=== PATIENT | female | born 1930 | race Caucasian/White ===

== ENCOUNTER 2016-10-21 14:00 | Emergency (ER) | payer MEDICARE ==
[2016-10-21] MEDS ORDERED: PREDNISONE 20 MG TABLET ONE (15:06)
[2016-10-21] MEDS ORDERED: ALBUTEROL/IPRATROPIUM 2.5/0.5 MG 3 ML/EACH DOSE ONE ×2 (15:10→15:59)
[2016-10-21 15:37] LABS: ABSOLUTE NEUTROPHIL COUNT 2.6 K/mm3 (1.8-7.7); BASO % 0.4 % (0.2-1.0); EOS # 0.3 (0.0-0.5); EOS % 5.9 % (0.9-2.9); HEMATOCRIT 36.1 % (37.0-47.0); IMM NEUT% 0.4 % (0-1); LYMPH % 21.8 % (15-45); MEAN CELL VOLUME 101.4 fl (81.0-99.0); MEAN CORPUSCULAR HEMOGLOBIN 30.9 pg (27.0-31.0); MEAN CORPUSCULAR HGB CONC 30.5 g/dl (33.0-37.0); MEAN PLATELET VOLUME 9.8 fl (7.4-10.4); MONO # 0.8 (0.0-0.8); MONO % 16.3 % (4-12); NEUT % 55.2 % (43-75); PLATELET COUNT 235 K/mm3 (130-400); RED CELL DISTRIBUTION WIDTH 12.1 % (11.5-14.5)
[2016-10-21 15:45] LABS: CALCIUM 9.2 mg/dL (8.6-10.3)
--- NOTE | 2016-10-21 15:47 | RAD ---
CHEST - 2 VIEWS COMPARISON: Portable chest x-ray, 04/30/2016 HISTORY: Cough and fever FINDINGS: Views: Frontal and lateral chest Lungs: Hyperinflated. No infiltrate. Heart and vessels: Normal Trachea and bronchi: Normal Mediastinum and blossom: Normal Costophrenic sulci: Normal Chest wall and bones: Normal. Upper abdomen: Normal. IMPRESSION: Chronic obstructive pulmonary disease/emphysema, without infiltrate.
== END 2016-10-21 18:08 | disposition home or self-care (01) ==
LOC: ED 14:00
DX: J44.1 Chronic obstructive pulmonary disease with (acute) exacerbation (principal); I10 Essential (primary) hypertension; F03.90 Unspecified dementia, unspecified severity, without behavioral disturbance, psychotic disturbance, mood disturbance, and anxiety; Z87.891 Personal history of nicotine dependence
CPT/HCPCS: 85025; 80048; 71020; 99284; 93005; 99283; J7512

== ENCOUNTER 2016-10-30 18:05 | Inpatient (IN) | payer MEDICARE ==
[2016-10-30] MEDS ORDERED: ALBUTEROL/IPRATROPIUM 2.5/0.5 MG 3 ML/EACH DOSE ONE (18:45)
--- NOTE | 2016-10-30 18:51 | RAD ---
Exam: Portable chest COMPARISON: 10/21/2016, 04/30/2016 INDICATION: Shortness of breath, worse than usual. Findings: A semierect AP portable view of chest again demonstrates findings of underlying obstructive airways disease. Cardiomediastinal silhouette is within normal limits and stable. There is no focal airspace disease or pleural effusion. Bones of the chest wall appear osteopenic but intact. IMPRESSION: Obstructive airways disease, however no acute pulmonary process is identified.
[2016-10-30 19:05] LABS: ALBUMIN 3.6 gm/dL (3.5-5.7); CALCIUM 9.4 mg/dL (8.6-10.3)
[2016-10-30 19:16] LABS: ABSOLUTE NEUTROPHIL COUNT 4.6 K/mm3 (1.8-7.7); BASO % 0.4 % (0.2-1.0); EOS # 0.5 (0.0-0.5); HEMOGLOBIN 12.3 gm/l (12.0-16.0); IMM NEUT% 0.3 % (0-1); LYMPH # 1.2 (1.0-4.8); LYMPH % 17.4 % (15-45); MEAN CELL VOLUME 103.7 fl (81.0-99.0); MEAN CORPUSCULAR HEMOGLOBIN 30.4 pg (27.0-31.0); MEAN CORPUSCULAR HGB CONC 29.3 g/dl (33.0-37.0); MEAN PLATELET VOLUME 9.4 fl (7.4-10.4); MONO # 0.7 (0.0-0.8); MONO % 9.8 % (4-12); NEUT % 65.1 % (43-75); PLATELET COUNT 312 K/mm3 (130-400); RED CELL DISTRIBUTION WIDTH 11.9 % (11.5-14.5)
[2016-10-30 20:00] LABS: URINE BILIRUBIN NEGATIVE (NEGATIVE); URINE BLOOD 1+ (NEGATIVE); URINE GLUCOSE (UA) NEGATIVE (NEGATIVE); URINE LEUKOCYTE ESTERASE 2+ (NEGATIVE); URINE NITRITE NEGATIVE (NEGATIVE); URINE PROTEIN 1+ (NEGATIVE); URINE UROBILINOGEN NORMAL (0-1 mg/dl)
[2016-10-30 20:11] LABS: URINE APPEARANCE SL CLOUDY; URINE COLOR DARK YELLOW
[2016-10-30 20:18] LABS: URINE AMORPHOUS SEDIMENT FEW; URINE BACTERIA 2+; URINE MUCUS 1+
[2016-10-30] MEDS ORDERED: CEFTRIAXONE 1 GRAM DUPLEX 50 ML IV ONE (20:29)
[2016-10-30] MEDS ORDERED: DIAZEPAM 5 MG TABLET ONE (20:45)
[2016-10-30] MEDS ORDERED: PREDNISONE 20 MG TABLET ONE (20:46)
[2016-10-30 21:09] LABS: VENOUS BLOOD GAS BASE EXCESS 13.7 mmol/L (-2.0-2.0); VENOUS BLOOD GAS HCO3 41.4 mmol/L (22.0-27.0)
[2016-10-30] MEDS ORDERED: MAGNESIUM HYDROXIDE 30 ML UDCUP PO PRN (21:54)
[2016-10-30] MEDS ORDERED: BISACODYL 5 MG TABLET.EC PO PRN (21:54)
[2016-10-30] MEDS ORDERED: SODIUM CHLORIDE 0.9% 100 ML IV PRN (21:54)
[2016-10-30] MEDS ORDERED: MENTHOL/CETYLPYRD 1 EACH LOZENGE PO PRN (21:54)
[2016-10-30] MEDS ORDERED: BLISTEX LIPSTICK 1 EACH TP PRN (21:54)
[2016-10-30] MEDS ORDERED: ACETAMINOPHEN 325 MG TABLET PO PRN (21:54)
[2016-10-30] MEDS ORDERED: BISACODYL 10 MG SUP PR PRN (21:54)
[2016-10-30] MEDS ORDERED: IV START KIT ONE (22:03)
[2016-10-30 22:06] VITALS: BMI 22.5
[2016-10-30] MEDS: ALBUTEROL/IPRATROPIUM 2.5/0.5 MG 3 ML/EACH DOSE NEB SCH (23:26)
[2016-10-30] MEDS: DOCUSATE SODIUM 100 MG CAPSULE PO SCH (23:33)
[2016-10-31] MEDS: FLUTICASONE/SALMETEROL 100/50 14 PUFF/EACH DISK IH SCH ×3 (00:21→20:52)
[2016-10-31] MEDS: ALPRAZOLAM 0.25 MG TABLET PO PRN ×3 (00:21→20:56)
[2016-10-31] MEDS: ALBUTEROL NEB 2.5 MG/3 ML VIAL.NEB NEB PRN ×3 (01:01→18:40)
[2016-10-31 06:31] LABS: CALCIUM 8.9 mg/dL (8.6-10.3)
--- NOTE | 2016-10-31 07:10 | HP ---
Amita Cortes [id number] CHIEF COMPLAINT: Dyspnea. HISTORY OF PRESENT ILLNESS: The patient is an 86-year-old female with advanced chronic obstructive pulmonary disease and chronic hypoxic respiratory failure who presents to the [facility] Emergency Department with complaints of worsening dyspnea. She vague about when her symptoms got worse. She has had an increased cough. She is significantly hypoxic in the emergency department despite her supplemental oxygen therapy, but after several nebulizer treatments her symptoms have improved. Based on the severity of her initial presentation and her increased work of breathing she was referred to the hospitalist service for admission. REVIEW OF SYSTEMS: Negative for any fevers or chills. She has had no recent upper respiratory symptoms. She denies complaints of chest pain. She has chronic dyspnea worse over the last week. She has a cough which is chronically productive, but seems a bit worse. Her sputum has not been visibly discolored. She has had no orthopnea or lower extremity edema. No nausea or vomiting. No diarrhea or constipation. No abdominal pain. No headaches, fainting, blackouts, or seizures. She denies any urinary complaints. PAST MEDICAL HISTORY: Significant for advanced chronic obstructive pulmonary disease with chronic hypoxic respiratory failure. She has been on home oxygen therapy for the past 14 years, she is at a flow rate of 3 liters by nasal cannula. She is followed by Dr. Rojas with [facility]. She has a nebulizer at home. She has a history of generalized anxiety disorder and is on chronic alprazolam treatment. She has had a history of coronary artery disease, but is not currently on any medical treatment for this due to refusal to take beta blockers. She has a no angina. She has had a history of peripheral vascular disease. She has had a history of pulmonary nodules. She has a history of osteoporosis and hyperlipidemia. She has had a history of hypertension in the past, but is no longer on any antihypertensive therapy. Her medical record indicates a history of dementia without behavioral disturbance, but she is a good historian and is oriented to person, place, time, year, and month. PAST SURGICAL HISTORY: Significant for a prior appendectomy. She has had a previous and a cholecystectomy. She also reports she has had a prior coronary angiogram, results are not available. ALLERGIES: SHE REPORTS ALLERGIES TO SULFA MEDICATIONS, PENICILLIN, ALSO COUMADIN, HEPARIN, AND CODEINE CURRENT MEDICATIONS: Consist of: 1. Calcium with vitamin D 250/200 units one pill twice daily. 2. Alprazolam 0.25 mg tablets one half to one tablet every 4 hours as needed for anxiety. 3. DuoNebs 3 mL nebulized up to four times daily. 4. Advair Diskus inhaler 100/50 mcg one inhalation twice daily. FAMILY HISTORY: Significant for a father, brother, and sister with coronary artery disease. SOCIAL HISTORY: She denies alcohol use or drug use. She has a 40 pack year history of smoking, but quit smoking 20 years ago. She [facility]. Her primary care provider is Dr. Naida Carroll. The patient has three living children. She has a POLST form indicating limited additional interventions, do not resuscitate. PHYSICAL EXAMINATION: VITALS: Temperature is 97.7, pulse 108, blood pressure 104/47, respirations 15, oxygen saturations are 93% on 3 liters by nasal cannula. Body mass index is 22.5, weight is 55.9 kg. GENERAL: This is a thin elderly female in mild respiratory distress. HEENT: Shows moist pink oral mucosa. NECK: Supple without lymphadenopathy or thyromegaly. LUNGS: Lung sounds are diminished throughout with occasional expiratory wheezes. CARDIOVASCULAR: Reveals a regular tachycardia without a murmur. ABDOMEN: Soft, nontender, nondistended with positive bowel sounds. GENITOURINARY: Deferred. RECTAL: Deferred. EXTREMITIES: Show no peripheral edema. DIAGNOSTICS: Chest x-ray shows findings of chronic obstructive pulmonary disease, no acute process is identified. LABORATORY STUDIES: Included a CBC with a white count of 7, hemoglobin of 12.3, platelet count of 312,000. Lactate is 0.8. Venous pH of 7.4. Chemistry profile shows a sodium of 140, potassium 4.5, chloride 90, carbon dioxide 46, BUN 14, creatinine 0.6, glucose 118. Liver function tests and cardiac enzymes are negative. B-type natiuretic peptide is 81. Urinalysis shows 2+ bacteria, 2-5 white cells, 2-5 red cells, 2+ leukocyte esterase, nitrite negative. ASSESSMENT AND PLAN: The patient has chronic obstructive pulmonary disease exacerbation with acute bronchitis, possibly bacterial. She is treated with Rocephin, prednisone, DuoNebs, and albuterol. She has generalized anxiety disorder and we will continue the Xanax as needed for her anxiety. She has chronic hypoxic respiratory failure. We will titrate her oxygen to keep her saturations between 88% and 95%. She has a history of coronary artery disease not on medication without evidence of angina. We will put her on low dose aspirin. She has evidence of asymptomatic bacteriuria, this will likely be treated with the treatment for her bronchitis. She reports she is up to date on pneumonia vaccinations and has a yearly flu vaccine. Per POLST form her code status is do not intubate, do not resuscitate. JOB: [id number] CC: Dr. Naida Carroll
[2016-10-31] MEDS: ALBUTEROL/IPRATROPIUM 2.5/0.5 MG 3 ML/EACH DOSE NEB SCH ×6 (07:55→20:35)
[2016-10-31] MEDS: ASPIRIN (ENTERIC COATED) 81 MG TABLET.EC PO SCH (09:01)
[2016-10-31] MEDS: PREDNISONE 20 MG TABLET PO SCH (09:01)
[2016-10-31] MEDS: DOCUSATE SODIUM 100 MG CAPSULE PO SCH ×2 (09:01→20:53)
[2016-10-31] MEDS: PANTOPRAZOLE 40 MG TABLET DR PO SCH (09:01)
[2016-10-31] MEDS ORDERED: FLUTICASONE/SALMETEROL 100/50 14 PUFF/EACH DISK IH SCH (11:30)
--- NOTE | 2016-10-31 17:05 | PDOC43 ---
- Subjective Chief Complaint: SOB feels better today but still a bit more SOB than nl. Subjective: Reports Tolerating Diet Well, Denies Chest Pain, Denies Abdominal Pain, Denies Nausea, Denies Vomiting, Denies Fever, Denies Chills - Objective Vital Signs Temperature 98.5 F 10/31/16 15:10 Pulse Rate 101 10/31/16 16:44 Respiratory Rate 22 10/31/16 16:37 Blood Pressure 110/47 10/31/16 16:44 O2 Saturation by Pulse Oximetry 90 10/31/16 16:37 Oxygen Delivery Method Nasal Cannula Oxygen Flow Rate 2.5 Intake and Output 10/30/16 10/31/16 11/01/16 06:59 06:59 06:59 Intake Total 400 490 Output Total 150 850 Balance 250 -360 General: Alert, Oriented x3, Cooperative, No Acute Distress HEENT: Atraumatic Lungs: Other (Poor air movement all regan B.) Cardiovascular: Regular Rate and Rhythm Abdomen: Soft, Normal Bowel Sounds, Non-Distended, No Tenderness Extremities: Normal Pulses, No Edema Laboratory 10/31/16 05:30 Current Medications: Current meds reviewed in EMR. - Problems: Assessment/Plan (1) COPD (chronic obstructive pulmonary disease) Qualifiers: COPD type: unspecified COPD Qualifier Code: (J44.9) Chronic obstructive pulmonary disease, unspecified Status: AcuteAssessment/Plan: COPD exacerbation in context of chronic COPD with chronic resp failure on home O2. Improved. [facility]pears near [facility]. Con't prednisone, rocephin, nebs, supportive care. (2) Anxiety Status: ChronicAssessment/Plan: Chronic at baseline. Con't usual xanax. VTE Prophylaxis: Ambulation. Disposition: Anticipate d/c home in AM.
[2016-10-31] MEDS ORDERED: PUMP TUBING ONE (20:47)
[2016-10-31] MEDS: CEFTRIAXONE 1 GRAM DUPLEX 1 G in Premix (D5W) 50 ml 1 EACH IV SCH (20:52)
[2016-11-01] MEDS: ALBUTEROL NEB 2.5 MG/3 ML VIAL.NEB NEB PRN ×2 (01:53→05:40)
[2016-11-01] MEDS: ALPRAZOLAM 0.25 MG TABLET PO PRN ×3 (05:39→22:22)
[2016-11-01] MEDS: ALBUTEROL/IPRATROPIUM 2.5/0.5 MG 3 ML/EACH DOSE NEB SCH ×5 (09:53→20:02)
[2016-11-01] MEDS: FLUTICASONE/SALMETEROL 100/50 14 PUFF/EACH DISK IH SCH ×2 (10:17→20:01)
[2016-11-01] MEDS: DOCUSATE SODIUM 100 MG CAPSULE PO SCH ×2 (10:17→20:01)
[2016-11-01] MEDS: ASPIRIN (ENTERIC COATED) 81 MG TABLET.EC PO SCH (10:17)
[2016-11-01] MEDS: PREDNISONE 20 MG TABLET PO SCH (10:18)
[2016-11-01] MEDS: PANTOPRAZOLE 40 MG TABLET DR PO SCH (10:18)
--- NOTE | 2016-11-01 13:36 | PDOC43 ---
- Subjective Chief Complaint: SOB Subjective: Reports Shortness of Breath (persists but approaching baseline), Denies Chest Pain, Denies Fever - Objective Vital Signs Temperature 98.5 F 11/01/16 11:41 Pulse Rate 84 11/01/16 11:46 Respiratory Rate 18 11/01/16 11:46 Blood Pressure 98/49 11/01/16 11:41 O2 Saturation by Pulse Oximetry 92 11/01/16 11:46 Oxygen Delivery Method Nasal Cannula Oxygen Flow Rate 1.5 Intake and Output 10/31/16 11/01/16 11/02/16 06:59 06:59 06:59 Intake Total 400 1180 Output Total 150 1150 Balance 250 30 General: Alert, Oriented x3, Cooperative, Mild Distress HEENT: Mucous membr. moist/pink Lungs: Diminished at Bases Cardiovascular: Regular Rate and Rhythm Abdomen: Soft, Normal Bowel Sounds, Non-Distended, No Tenderness Extremities: No Edema Laboratory 11/01/16 05:30 11/01/16 05:30 Anion Gap 5 L Estimated GFR 95 H Current Medications: Current meds reviewed in EMR. - Problems: Assessment/Plan (1) COPD (chronic obstructive pulmonary disease) Qualifiers: COPD type: unspecified COPD Qualifier Code: (J44.9) Chronic obstructive pulmonary disease, unspecified Status: AcuteAssessment/Plan: COPD exacerbation in context of chronic COPD with chronic resp failure on home O2. Marked chronic resp acidosis. Improving. Appears near baseline. Cont. prednisone, rocephin, nebs, supportive care. - patient does not feel safe at home and is interested in applying for assisted living, will get social work case manager consult. (2) Anxiety Status: ChronicAssessment/Plan: Chronic at baseline. Cont. usual xanax. VTE Prophylaxis: Ambulation. Disposition: Anticipate d/c home in AM. Need to look into assisted living options.
[2016-11-01] MEDS: CEFTRIAXONE 1 GRAM DUPLEX 1 G in Premix (D5W) 50 ml 1 EACH IV SCH (20:01)
[2016-11-02] MEDS: ALBUTEROL NEB 2.5 MG/3 ML VIAL.NEB NEB PRN ×3 (00:42→11:24)
[2016-11-02] MEDS: ALPRAZOLAM 0.25 MG TABLET PO PRN ×3 (05:15→20:33)
[2016-11-02] MEDS: ALBUTEROL/IPRATROPIUM 2.5/0.5 MG 3 ML/EACH DOSE NEB SCH ×4 (08:20→20:05)
[2016-11-02] MEDS: PANTOPRAZOLE 40 MG TABLET DR PO SCH (09:21)
[2016-11-02] MEDS: ASPIRIN (ENTERIC COATED) 81 MG TABLET.EC PO SCH (09:21)
[2016-11-02] MEDS: PREDNISONE 20 MG TABLET PO SCH (09:21)
[2016-11-02] MEDS: DOCUSATE SODIUM 100 MG CAPSULE PO SCH ×2 (09:21→20:32)
[2016-11-02] MEDS: FLUTICASONE/SALMETEROL 100/50 14 PUFF/EACH DISK IH SCH ×2 (09:22→20:31)
[2016-11-02] MEDS ORDERED: HYDROCORTISONE 2.5% CREAM 20 APPLIC/30 G TUBE PR PRN (12:18)
[2016-11-02] MEDS ORDERED: [UNRECOGNIZED DRUG - OTHER] PR PRN (12:45)
--- NOTE | 2016-11-02 16:28 | PDOC43 ---
- Subjective Chief Complaint: SOB Subjective: Reports Tolerating Diet Well, Reports Shortness of Breath (chronic and severe), Denies Chest Pain, Denies Fever - Objective Vital Signs Temperature 98.8 F 11/02/16 12:00 Pulse Rate 70 11/02/16 12:00 Respiratory Rate 19 11/02/16 15:00 Blood Pressure 117/52 11/02/16 12:00 O2 Saturation by Pulse Oximetry 85 11/02/16 12:40 Oxygen Delivery Method Nasal Cannula Oxygen Flow Rate 2.5 Intake and Output 11/01/16 11/02/16 11/03/16 06:59 06:59 06:59 Intake Total 1180 1670 Output Total 1150 1750 101 Balance 30 -80 -101 General: Alert, Oriented x3, Cooperative, Mild Distress HEENT: Mucous membr. moist/pink Lungs: Other (diminished throughout with some wheezes) Cardiovascular: Regular Rate and Rhythm Abdomen: Soft, Normal Bowel Sounds, Non-Distended, No Tenderness Extremities: No Edema Skin: Warm, Dry, Intact Neurological: Normal Speech, Cranial Nerves 3-12 Intact Laboratory 11/01/16 05:30 Current Medications: Current meds reviewed in EMR. - Problems: Assessment/Plan (1) COPD (chronic obstructive pulmonary disease) Qualifiers: COPD type: unspecified COPD Qualifier Code: (J44.9) Chronic obstructive pulmonary disease, unspecified Status: AcuteAssessment/Plan: COPD exacerbation in context of chronic COPD with chronic resp failure on home O2. Marked chronic resp acidosis. Improving. Appears near baseline which is end stage COPD. Cont. prednisone, rocephin, nebs, supportive care. - patient does not feel safe at home and is interested in applying for assisted living, will get social media community manager consult. Patient is medically stable and at baseline but refusing to be discharged due to poor social and physical support at home. Have contacted Medicaid field representative and patient is currently in limbo pending approval of increased services. Would benefit from assisted living. (2) Anxiety Status: ChronicAssessment/Plan: Chronic at baseline. Cont. usual xanax. VTE Prophylaxis: Ambulation and mechanical measures but refused [facility]. measures due to concerns about PVD. Disposition: Discharged patient this am, but patient is appealing discharge through Medicare.
[2016-11-02] MEDS ORDERED: MORPHINE SULF Oral Liquid 20 MG/1 ML DOSE PO PRN (16:41)
[2016-11-02] MEDS ORDERED: PUMP TUBING ONE (20:23)
[2016-11-02] MEDS: CEFTRIAXONE 1 GRAM DUPLEX 1 G in Premix (D5W) 50 ml 1 EACH IV SCH (20:30)
[2016-11-03] MEDS: ALBUTEROL NEB 2.5 MG/3 ML VIAL.NEB NEB PRN ×2 (03:19→13:01)
[2016-11-03] MEDS: ALBUTEROL/IPRATROPIUM 2.5/0.5 MG 3 ML/EACH DOSE NEB SCH ×3 (07:08→11:25)
[2016-11-03] MEDS: FLUTICASONE/SALMETEROL 100/50 14 PUFF/EACH DISK IH SCH (08:32)
[2016-11-03] MEDS: DOCUSATE SODIUM 100 MG CAPSULE PO SCH (08:33)
[2016-11-03] MEDS: ALPRAZOLAM 0.25 MG TABLET PO PRN (08:33)
[2016-11-03] MEDS: PREDNISONE 20 MG TABLET PO SCH (08:33)
[2016-11-03] MEDS: PANTOPRAZOLE 40 MG TABLET DR PO SCH (08:33)
[2016-11-03] MEDS: ASPIRIN (ENTERIC COATED) 81 MG TABLET.EC PO SCH (08:38)
--- NOTE | 2016-11-03 09:55 | PDOC43 ---
- Subjective Chief Complaint: SOB pt states she is feeling better. she is ready to go home today. had appealed discharge yesterday, but now willing to go home as she feels better. She ntoes SOB is improved. on home O2 level, tyically at home runs 2-3L O2 pending activity level. She does not recall morphine helping her with air hunger yesterday. Subjective: Reports Pain Tolerable, Reports Tolerating Diet Well, Reports Adequate Oral Intake, Reports Urinating Without Difficulty, Reports Shortness of Breath, Reports Cough, Denies Chest Pain, Denies Abdominal Pain, Denies Nausea, Denies Vomiting, Denies Fever, Denies Chills - Objective Vital Signs Temperature 97.6 F 11/03/16 07:00 Pulse Rate 94 11/03/16 07:09 Respiratory Rate 22 11/03/16 07:09 Blood Pressure 120/57 11/03/16 07:00 O2 Saturation by Pulse Oximetry 98 11/03/16 07:09 Oxygen Delivery Method Nasal Cannula Oxygen Flow Rate 3 Intake and Output 11/01/16 11/02/16 11/03/16 23:59 23:59 23:59 Intake Total 1540 1170 400 Output Total 1600 851 925 Balance -60 319 -525 General: Alert, Oriented x3, Cooperative HEENT: Atraumatic, Mucous membr. moist/pink Lungs: Diminished at Bases, No Clear to Auscultation Bilaterally (decreased significantly Bl throughout), No Normal Air Movement (wheezes trace in BL bases) Cardiovascular: Regular Rate and Rhythm, Normal S1, Normal S2, No Murmur, No Gallops Extremities: No Cyanosis Skin: Warm, Dry, Intact Neurological: Normal Speech Psych/Mental Status: Normal Affect, Normal Mood Laboratory 11/01/16 05:30 Current Medications: Current meds reviewed in EMR. - Problems: Assessment/Plan (1) COPD (chronic obstructive pulmonary disease) Qualifiers: COPD type: unspecified COPD Qualifier Code: (J44.9) Chronic obstructive pulmonary disease, unspecified Status: AcuteAssessment/Plan: COPD exacerbation in context of chronic COPD with chronic resp failure on home O2. Marked chronic resp acidosis. Still improving. Appears near baseline which is end stage COPD. Cont. prednisone, rocephin, nebs, supportive care. - patient does not feel safe at home and is interested in applying for assisted living, this is in process. Patient is medically stable and at baseline and is accepting of Discharge home today. she did get one dose of morphine 5mg for air hunger yesterday, pt is unsure if this was helpful. She is asking to go on prednisone 10mg only, as more makes her ill. (2) Anxiety Status: ChronicAssessment/Plan: Chronic at baseline. Cont. usual xanax. VTE Prophylaxis: Ambulation and mechanical measures but refused mech. measures due to concerns about PVD. Disposition: Discharged patient this am. pt withdraws appeal of DC this AM
[2016-11-03 11:25] VITALS: BP 120/55
--- NOTE | 2016-11-03 16:06 | DS ---
SATISH TAYLOR [id number] : 1930 DATE OF ADMISSION: October 31, 2016 DATE OF DISCHARGE: November 03, 2016 ADMIT DIAGNOSES: 1. End-stage chronic obstructive pulmonary disease with exacerbation. 2. Bacterial bronchitis. 3. Anxiety. DISCHARGE DIAGNOSES: 1. End-stage chronic obstructive pulmonary disease with exacerbation. 2. Bacterial bronchitis. 3. Anxiety. PROCEDURES/IMAGING: Chest x-ray shows findings of chronic obstructive pulmonary disease without any acute process performed at time of admission on October 31, 2016 HISTORY AND PHYSICAL: Please see History and Physical dictated, job number [id number]. In short, this is an 86-year-old female with end-stage chronic obstructive pulmonary disease on home oxygen already who presented with worsening shortness of breath and cough as well as hypoxia. She had a chronic obstructive pulmonary disease exacerbation and acute bronchitis and was admitted for treatment of the same. HOSPITAL COURSE: Hospital course by problems as follows: 1. Chronic obstructive pulmonary disease exacerbation. Patient was initially treated with Rocephin, prednisone, DuoNebs and albuterol. She did continue to improve throughout her hospital stay. She is on oxygen at home with a baseline of 2 to 3 liters per minute and was able to return to this baseline shortly after her admission and initiation of treatment. On November 02, 2016, patient was essentially at her baseline and was ready for discharge home. However, she complained of some vision changes secondary to her prednisone and appealed her discharge. By November 03, 2016, her vision had cleared up and she was feeling better and requested discharged home. She did make a special request that she wanted to be given 10 mg of prednisone for discharge as anything more makes her feel ill and unable to care for herself. She is at the end stages of her chronic obstructive pulmonary disease and as such she is currently in the process of attempting to get some more assistance at home. She is looking at moving to assisted living. [facility] is involved in her care now and will be visiting her on November 05, 2016 to do an assessment for further needs and resources that can be pulled in for her. The patient was discharged with instructions to continue her cephalexin as well as prednisone 10 mg daily for seven days to taper down to 5 mg daily for seven days and then to stop. She will follow up with her primary care provider, Dr. Leung in approximately one week. Patient was given one dose of morphine 5 mg orally in an effort to control her air hunger and see if this would assist her comfort. Patient does not recall whether or not it helped her although she states something did help her on that day. She declined to have a morphine prescription given to her at discharge but would like to discuss it with her primary care provider in the future. 2. Anxiety. Patient does have a history of underlying anxiety. She is taking Xanax and was continued through her hospital stay. Despite her resistance to discharge on November 02, 2016, she did not have too much issues with anxiety throughout her stay. DISCHARGE MEDICATIONS: Patient will resume her home medications of: 1. Calcium with vitamin D 250/200 one pill twice daily. 2. Alprazolam 0.25 mg to 0.5 mg every four hours as needed for anxiety. 3. DuoNebs 3 mL nebulized up to four times daily. 4. Advair Diskus 100/50 mcg one inhalation twice daily. 5. Albuterol MDI two puffs every four hours as needed for shortness of breath. She is to start new medications of: 1. Prednisone taper 10 mg prednisone tablet, take one tablet daily for seven days then taper down to 0.5 tablet orally daily for seven days and then stop. 2. She is also given a new prescription for cephalexin 500 mg orally three times daily for seven days. ACTIVITY: Ad johanna. DIET: Regular. FOLLOW UP: The patient is to follow up with her primary care provider, Dr. Naida Leung. An appointment has been made on November 12, 2016 at 11:15 a.m. CONDITION: Stable. DISPOSITION: To home. Cc: Naida Leung M.D.
== END 2016-11-03 13:10 | DRG 191 ==
LOC: ED 18:05 → MS 21:12
PROVIDERS: ADMIT Family Medicine; ATTEND Family Medicine
DX: J44.1 Chronic obstructive pulmonary disease with (acute) exacerbation (principal); J96.11 Chronic respiratory failure with hypoxia; J44.0 Chronic obstructive pulmonary disease with (acute) lower respiratory infection; J20.8 Acute bronchitis due to other specified organisms; F41.9 Anxiety disorder, unspecified

== ENCOUNTER 2016-11-06 16:29 | Observation (INO) | payer MEDICARE ==
[2016-11-06 17:32] LABS: ABSOLUTE NEUTROPHIL COUNT 6.7 K/mm3 (1.8-7.7); BASO % 0.3 % (0.2-1.0); EOS # 0.1 (0.0-0.5); EOS % 1.8 % (0.9-2.9); HEMATOCRIT 38.8 % (37.0-47.0); HEMOGLOBIN 11.2 gm/l (12.0-16.0); IMM NEUT # 0.1 K/mm3 (0-0.2); IMM NEUT% 1.4 % (0-1); LYMPH # 0.6 (1.0-4.8); LYMPH % 7.5 % (15-45); MEAN CELL VOLUME 104.6 fl (81.0-99.0); MEAN CORPUSCULAR HEMOGLOBIN 30.2 pg (27.0-31.0); MEAN CORPUSCULAR HGB CONC 28.9 g/dl (33.0-37.0); MEAN PLATELET VOLUME 9.7 fl (7.4-10.4); MONO # 0.4 (0.0-0.8); MONO % 5.2 % (4-12); NEUT % 83.8 % (43-75); PLATELET COUNT 213 K/mm3 (130-400); RED CELL DISTRIBUTION WIDTH 12.2 % (11.5-14.5)
[2016-11-06] MEDS ORDERED: ALBUTEROL/IPRATROPIUM 2.5/0.5 MG 3 ML/EACH DOSE ONE (17:37)
[2016-11-06 17:54] LABS: ALB/GLOB RATIO 1.1 (>1.0); ALBUMIN 3.5 gm/dL (3.5-5.7); CALCIUM 9.2 mg/dL (8.6-10.3); MAGNESIUM 2.2 mg/dL (1.9-2.7)
--- NOTE | 2016-11-06 18:22 | RAD ---
Name: SATISH TAYLOR Exam: Two-view chest Comparison: 10/30/2016 Clinical history: Shortness breath and weakness Findings: 2 views of the chest are submitted. Heart is not enlarged. Mediastinum is normal. There is calcification of the aorta. COPD with scarring is identified. There is no failure, infiltrate, pleural effusion or pneumothorax. Bone density is diffusely diminished. Impression: 1. COPD with scarring 2. Senescent changes of the chest 3. No acute cardiopulmonary process
[2016-11-06] MEDS ORDERED: METHYLPRED SOD SUCCINATE 125 MG VIAL ONE (18:23)
[2016-11-06 18:40] LABS: URINE BILIRUBIN NEGATIVE (NEGATIVE); URINE BLOOD TRACE (NEGATIVE); URINE GLUCOSE (UA) NEGATIVE (NEGATIVE); URINE LEUKOCYTE ESTERASE NEGATIVE (NEGATIVE); URINE NITRITE NEGATIVE (NEGATIVE); URINE PROTEIN NEGATIVE (NEGATIVE); URINE UROBILINOGEN NORMAL (0-1 mg/dl)
[2016-11-06 18:42] LABS: URINE APPEARANCE CLEAR; URINE COLOR YELLOW
[2016-11-06 18:48] LABS: VENOUS BLOOD GAS HCO3 40.5 mmol/L (22.0-27.0)
[2016-11-06 18:49] LABS: VENOUS BLOOD GAS BASE EXCESS 10.4 mmol/L (-2.0-2.0)
[2016-11-06 18:50] LABS: URINE BACTERIA 0; URINE EPITHELIAL CELLS 0 /hpf; URINE WBC NEG /hpf
[2016-11-06 21:05] VITALS: BMI 22.4
[2016-11-06] MEDS ORDERED: MAGNESIUM HYDROXIDE 30 ML UDCUP PO PRN (21:37)
[2016-11-06] MEDS ORDERED: BLISTEX LIPSTICK 1 EACH TP PRN (21:37)
[2016-11-06] MEDS ORDERED: MENTHOL/CETYLPYRD 1 EACH LOZENGE PO PRN (21:37)
[2016-11-06] MEDS ORDERED: SODIUM CHLORIDE 0.9% 100 ML IV PRN (21:37)
[2016-11-06] MEDS ORDERED: BISACODYL 5 MG TABLET.EC PO PRN (21:37)
[2016-11-06] MEDS ORDERED: ACETAMINOPHEN 325 MG TABLET PO PRN (21:37)
[2016-11-06] MEDS ORDERED: BISACODYL 10 MG SUP PR PRN (21:37)
[2016-11-06] MEDS: ALPRAZOLAM 0.25 MG TABLET PO PRN (21:58)
[2016-11-06] MEDS: CEPHALEXIN 500 MG CAPSULE PO SCH (21:59)
[2016-11-06] MEDS: FLUTICASONE/SALMETEROL 100/50 14 PUFF/EACH DISK IH SCH (21:59)
[2016-11-07 06:13] LABS: CALCIUM 9.3 mg/dL (8.6-10.3)
[2016-11-07] MEDS: ALPRAZOLAM 0.25 MG TABLET PO PRN (07:55)
--- NOTE | 2016-11-07 08:05 | HP ---
Amita Cortes ADMIT DATE: 11/06/2016 CHIEF COMPLAINT: Shortness of breath. HISTORY OF PRESENT ILLNESS: Amita is an 86-year-old with known underlying end stage chronic obstructive pulmonary disease. She was just discharged from the hospital three days ago. Of note, she was very resistant to being discharged as she stated frequently that she did not feel that she was capable of being home alone, however, there was no other arrangements that were able to be made. The patient actually contested her discharge and ended up staying in the hospital an extra day or two beyond when medical staff felt that discharge was appropriate. She apparently presented to the emergency room tonight with anxiety and shortness of breath. It is unclear because the patient herself tells me that she feels fine and has felt no different over the last several days. She, however, does not remember coming to the emergency room. She does have significant anxiety and often times have panic attacks and she wonders if she may be had one of those tonight. The emergency room physician reports to me that she complained of several days of worsening shortness of breath, however, the patient has not been out of the hospital for several days. At this point, the patient is telling me that she feels fine, but that she "better stay here a couple of days." It is clear that she does not wish to be in her present living environment. REVIEW OF SYSTEMS: She complains of no headache, no visual disturbance, no difficulty swallowing. She does have her baseline shortness of breath that is no worse now than it ever is. No chest pain, no heart palpitations. No nausea, vomiting, diarrhea. No fever or chills. PAST MEDICAL HISTORY: 1. 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 She also has chronic hypercapnia. She is on 2 to 3 liters of oxygen at baseline at home. 2. Anxiety on chronic Xanax therapy. PAST SURGICAL HISTORY: 1. Appendectomy in the distant past. 2. in the distant past. 3. Cholecystectomy in the distant past. 4. Coronary angiogram in the distant past with unknown results. ALLERGIES: SULFA, PENICILLIN, COUMADIN, HEPARIN, AND CODEINE. CURRENT MEDICATIONS: Per discharge: 1. Prednisone 10 mg by mouth every morning. 2. Advair 100/50 one puff inhaled twice daily. 3. Keflex 500 mg by mouth three times daily. 4. Calcium with vitamin D 1 by mouth daily. 5. Alprazolam 0.125 to 0.25 mg by mouth every 4 hours as needed. 6. DuoNeb four times daily. FAMILY HISTORY: Multiple family members with coronary artery disease. SOCIAL HISTORY: She lives at [facility] in the independent living area. She is unsatisfied in her current living environment and is wishing to be at a place where she has more help. It is unclear this evening what kind of assistance she has received in finding more appropriate living arrangements. She has about a 50 pack year history of smoking, though she quit greater than 20 years ago. No alcohol or drug use. She has three children. She is DNR/DNI and this is verified tonight. OBJECTIVE: VITAL SIGNS: Temperature 98.5, pulse 97, blood pressure 122/49, respirations 18 and unlabored, O2 sat 93% on 4 liters. GENERAL: This is a thin elderly female. She is alert and pleasant sitting up in bed speaking in full sentences, smiling, very talkative, and in no distress what so ever. HEENT: Normocephalic, atraumatic. Tympanic membranes intact. Oropharynx is moist. NECK: Supple. LUNGS: Poor air movement in all regan bilaterally. HEART: Regular rate and rhythm. ABDOMEN: Soft, nontender, nondistended. No rebound, no guarding. EXTREMITIES: No edema. DIAGNOSTICS: Chest x-ray shows chronic obstructive pulmonary disease. There has been no acute processes, unchanged from previous x-ray's. LABORATORY: CBC with a white count of 8.0, hemoglobin 11.2, hematocrit 38.8, platelets of 213. Chemistry panel, sodium 138, potassium 5.3, chloride 93, carbon dioxide 45 (baseline), BUN 15, creatinine 0.5, glucose 131. Troponin 0.01. BNP of 62. Venous blood gas with a pH of 7.27, pCO2 of 89.5, pO2 of 94.1, bicarb of 40.5. Urinalysis is clear. ASSESSMENT: 1. End stage chronic obstructive pulmonary disease with chronic hypoxic respiratory failure now having a mild acute exacerbation that was fairly transient. The patient is exceedingly fragile and she already appears to be at baseline again. I strongly suspect that she may have had a panic attack and this may have exacerbated her very fragile end stage chronic obstructive pulmonary disease. 2. Anxiety. Appears to be well controlled at baseline. 3. Suboptimal living arrangements. Patient very clearly will be at risk for continued readmissions until her living arrangements are optimized a bit more. PLAN: I have referred her to observation. She really does appear to be at baseline right now with her baseline oxygen requirements and baseline physical exam. I am going to continue her on her regular medications and make no changes. Tomorrow we will have social work and care management involved. We will have physical therapy and occupational therapy involved and we will see if we can rectify her living situation. Further care if dictated by clinic course. Deep venous thrombosis prophylaxis is not indicated as the patient is at baseline. Anticipated to be in the hospital less than 48 hours. JOB: [id number] CC: Dr. Naida Baires
[2016-11-07] MEDS ORDERED: ALBUTEROL/IPRATROPIUM 2.5/0.5 MG 3 ML/EACH DOSE IH SCH (09:00)
[2016-11-07] MEDS: CEPHALEXIN 500 MG CAPSULE PO SCH ×3 (09:29→20:11)
[2016-11-07] MEDS: PREDNISONE 10 MG TABLET PO SCH (09:29)
[2016-11-07] MEDS: FLUTICASONE/SALMETEROL 100/50 14 PUFF/EACH DISK IH SCH ×2 (09:29→20:12)
[2016-11-07] MEDS ORDERED: FLUTICASONE/SALMETEROL 100/50 14 PUFF/EACH DISK IH SCH (09:45)
--- NOTE | 2016-11-07 10:40 | PDOC43 ---
- Subjective Chief Complaint: Dyspnea. Patient now stated that she had increased dyspnea yesterday. Now feels at her baseline. Desires a higher level of care where she can have more support. - Objective Vital Signs Temperature 97.9 F 11/07/16 08:00 Pulse Rate 107 11/07/16 08:59 Respiratory Rate 20 11/07/16 08:59 Blood Pressure 99/76 11/07/16 08:00 O2 Saturation by Pulse Oximetry 94 11/07/16 08:59 Oxygen Delivery Method Nasal Cannula Oxygen Flow Rate 3 Intake and Output 11/06/16 11/07/16 11/08/16 06:59 06:59 06:59 Intake Total 240 700 Output Total 300 Balance 240 400 General: Alert, Cooperative, No Acute Distress HEENT: Mucous membr. moist/pink Lungs: Diminished at Bases, Other (slight exp wheezes) Cardiovascular: Regular Rate and Rhythm Abdomen: Soft, Normal Bowel Sounds, No Tenderness, No Masses Extremities: Pulses Diminished but Palpable, No Edema Skin: Normal Color Neurological: Normal Speech Psych/Mental Status: Anxious Laboratory 11/07/16 05:30 11/07/16 05:30 Estimated GFR 80 H Current Medications: Current meds reviewed in EMR. - Problems: Assessment/Plan (1) COPD (chronic obstructive pulmonary disease) Qualifiers: COPD type: unspecified COPD Qualifier Code: (J44.9) Chronic obstructive pulmonary disease, unspecified Status: ChronicAssessment/Plan: Advanced O2 and steroid dependent COPD with chronic hypoxemic and hypercapnic respiratory failure. At baseline, continue usual treatment. (2) Anxiety Status: ChronicAssessment/Plan: with panic attacks contributing to dyspnea and return to hospital. Trial of low dose paroxetine at bedtime. (3) Hyperkalemia Status: AcuteAssessment/Plan: mild, likely artifact, recheck. (4) Anemia Status: ChronicAssessment/Plan: chronic macrocytic, check B12 and Folate VTE Prophylaxis: not indicated (observation) but has IPCs on Disposition: care management and social work looking into adult foster care or higher level of care at [facility].
[2016-11-07] MEDS: ALBUTEROL/IPRATROPIUM 2.5/0.5 MG 3 ML/EACH DOSE IH SCH ×3 (12:30→20:24)
[2016-11-07 16:06] LABS: FOLIC ACID 22.5 ng/mL (>5.9)
[2016-11-07] MEDS: PAROXETINE 10 MG TABLET PO SCH (20:12)
[2016-11-08] MEDS: ALPRAZOLAM 0.25 MG TABLET PO PRN ×4 (01:02→20:13)
[2016-11-08] MEDS: ALBUTEROL/IPRATROPIUM 2.5/0.5 MG 3 ML/EACH DOSE IH SCH ×4 (08:15→19:04)
[2016-11-08] MEDS: PREDNISONE 10 MG TABLET PO SCH (08:25)
[2016-11-08] MEDS: FLUTICASONE/SALMETEROL 100/50 14 PUFF/EACH DISK IH SCH ×2 (08:25→20:13)
[2016-11-08] MEDS: CEPHALEXIN 500 MG CAPSULE PO SCH ×2 (08:25→20:13)
--- NOTE | 2016-11-08 08:34 | PDOC43 ---
- Subjective Chief Complaint: Dyspnea. Mildly agitated from prednisone, otherwise at her baseline. - Objective Vital Signs Temperature 98.4 F 11/08/16 06:40 Pulse Rate 107 11/08/16 08:15 Respiratory Rate 24 11/08/16 08:15 Blood Pressure 164/64 11/08/16 06:40 O2 Saturation by Pulse Oximetry 95 11/08/16 08:15 Oxygen Delivery Method Nasal Cannula Oxygen Flow Rate 1 Intake and Output 11/07/16 11/08/16 11/09/16 06:59 06:59 06:59 Intake Total 240 2050 Output Total 600 Balance 240 1450 General: Alert, Oriented x3, Cooperative, No Acute Distress HEENT: Mucous membr. moist/pink Lungs: Diminished at Bases, Other (no wheezing) Cardiovascular: Regular Rate and Rhythm Abdomen: Soft, Normal Bowel Sounds, No Tenderness, No Masses Extremities: Pulses Diminished but Palpable, No Edema Skin: Normal Color Neurological: Normal Speech Psych/Mental Status: Anxious Laboratory 11/08/16 05:15 11/08/16 11/07/16 05:15 05:30 Anion Gap 3 L Estimated GFR 95 H Vitamin B12 950 H Current Medications: Current meds reviewed in EMR. - Problems: Assessment/Plan (1) COPD (chronic obstructive pulmonary disease) Qualifiers: COPD type: unspecified COPD Qualifier Code: (J44.9) Chronic obstructive pulmonary disease, unspecified Status: ChronicAssessment/Plan: Advanced O2 and steroid dependent COPD with chronic hypoxemic and hypercapnic respiratory failure. At baseline, continue usual treatment. (2) Anxiety Status: ChronicAssessment/Plan: with panic attacks contributing to dyspnea and return to hospital. Trial of low dose paroxetine at bedtime. (3) Hyperkalemia Status: AcuteAssessment/Plan: resolved (4) Anemia Status: ChronicAssessment/Plan: chronic macrocytic anemia, stable, B12 and folate normal. VTE Prophylaxis: not indicated (observation) but has IPCs on Disposition: care management and social work looking into [facility] or higher level of care at [facility].
[2016-11-08] MEDS: PAROXETINE 10 MG TABLET PO SCH (20:13)
[2016-11-09] MEDS: ALPRAZOLAM 0.25 MG TABLET PO PRN ×2 (02:21→20:45)
[2016-11-09] MEDS: ALBUTEROL/IPRATROPIUM 2.5/0.5 MG 3 ML/EACH DOSE IH SCH ×4 (07:15→20:20)
[2016-11-09] MEDS: FLUTICASONE/SALMETEROL 100/50 14 PUFF/EACH DISK IH SCH ×2 (08:29→20:45)
[2016-11-09] MEDS: CEPHALEXIN 500 MG CAPSULE PO SCH ×2 (08:29→20:45)
[2016-11-09] MEDS: PREDNISONE 10 MG TABLET PO SCH (08:29)
--- NOTE | 2016-11-09 14:35 | PDOC43 ---
- Subjective Chief Complaint: Debility, dyspnea Subjective: Reports Tolerating Diet Well, Reports Shortness of Breath, Denies Cough, Denies Chest Pain, Denies Nausea - Objective Vital Signs Temperature 97.9 F 11/09/16 07:04 Pulse Rate 105 11/09/16 11:37 Respiratory Rate 20 11/09/16 11:37 Blood Pressure 125/71 11/09/16 07:04 O2 Saturation by Pulse Oximetry 97 11/09/16 11:37 Oxygen Delivery Method Nasal Cannula Oxygen Flow Rate 2 Intake and Output 11/07/16 11/08/16 11/09/16 23:59 23:59 23:59 Intake Total 1600 2550 500 Output Total 600 300 550 Balance 1000 2250 -50 General: Alert, Oriented x3, Cooperative, Other (cachetic, accessory muscle usage, mild conversational dyspnea) HEENT: Atraumatic, PERRLA, EOMI, Mucous membr. moist/pink Lungs: Other (barrel chested, diminshed throughout, scattered expiratory wheezes ) Cardiovascular: Other (very distant heart tones) Abdomen: Soft, Normal Bowel Sounds, Non-Distended Extremities: Edema (trace), Other (slowed capillary refill) Skin: Normal Color, Warm Neurological: Normal Speech, Cranial Nerves 3-12 Intact Psych/Mental Status: Normal Affect Laboratory 11/08/16 05:15 Current Medications: Current meds reviewed in EMR. - Problems: Assessment/Plan (1) Hyperkalemia Status: AcuteAssessment/Plan: resolved, monitor, likely component of spurious hemolysis of sample (2) Anxiety Status: ChronicAssessment/Plan: Hypoxia with panic attacks contributing to dyspnea and return to hospital as part of end stage COPD. Trial of low dose paroxetine at bedtime. (3) COPD (chronic obstructive pulmonary disease) Qualifiers: COPD type: unspecified COPD Qualifier Code: (J44.9) Chronic obstructive pulmonary disease, unspecified Status: ChronicAssessment/Plan: End stages of advanced COPD with chronic O2 and steroid dependence, frequent hospitalization, weight loss, elevated CO3. Continue supportive care while we pursue more outpatient support. 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 (5) Counseling regarding end of life decision making Status: AcuteAssessment/Plan: Discussed code status and confirmed AND/DNR. Has a POLST already. Consult hospice for enrollment at discharge, social work/care management notified. VTE Prophylaxis: IPC in place Disposition: cCare management and social work looking into [facility] or higher level of care at [facility] and will not have further information or decisions until saturday Patient is amendable to hospice consult.
[2016-11-09] MEDS: PAROXETINE 10 MG TABLET PO SCH (20:45)
[2016-11-10] MEDS: ALBUTEROL/IPRATROPIUM 2.5/0.5 MG 3 ML/EACH DOSE IH SCH ×4 (08:05→19:16)
[2016-11-10] MEDS: PREDNISONE 10 MG TABLET PO SCH (08:28)
[2016-11-10] MEDS: CEPHALEXIN 500 MG CAPSULE PO SCH ×2 (08:28→20:05)
[2016-11-10] MEDS: FLUTICASONE/SALMETEROL 100/50 14 PUFF/EACH DISK IH SCH ×2 (08:28→20:04)
[2016-11-10] MEDS: ALPRAZOLAM 0.25 MG TABLET PO PRN ×3 (08:46→23:22)
--- NOTE | 2016-11-10 13:12 | PDOC43 ---
- Subjective Chief Complaint: Debility, dyspnea Subjective: Reports Tolerating Diet Well, Reports Shortness of Breath (at baseline), Denies Chest Pain, Denies Vomiting, Denies Fever - Objective Vital Signs Temperature 98.2 F 11/10/16 07:37 Pulse Rate 107 11/10/16 12:09 Respiratory Rate 24 11/10/16 12:09 Blood Pressure 128/61 11/10/16 07:37 O2 Saturation by Pulse Oximetry 97 11/10/16 12:09 Oxygen Delivery Method Nasal Cannula Oxygen Flow Rate 2 Intake and Output 11/09/16 11/10/16 11/11/16 06:59 06:59 06:59 Intake Total 2600 1680 120 Output Total 850 1250 675 Balance 1750 430 -555 General: Alert, Oriented x3, Cooperative, Mild Distress HEENT: Mucous membr. moist/pink Lungs: Diminished at Bases Cardiovascular: Regular Rate and Rhythm Abdomen: Soft, Normal Bowel Sounds, Non-Distended, No Tenderness Extremities: No Edema Laboratory 11/08/16 05:15 Current Medications: Current meds reviewed in EMR. - Problems: Assessment/Plan (1) Counseling regarding end of life decision making Status: AcuteAssessment/Plan: Discussed code status and confirmed AND/DNR. Has a POLST already. Consult hospice for enrollment at discharge, social work/care management notified. (2) Anxiety Status: ChronicAssessment/Plan: Hypoxia with panic attacks contributing to dyspnea and return to hospital as part of end stage COPD. Trial of low dose paroxetine at bedtime. (3) COPD (chronic obstructive pulmonary disease) Qualifiers: COPD type: unspecified COPD Qualifier Code: (J44.9) Chronic obstructive pulmonary disease, unspecified Status: ChronicAssessment/Plan: End stages of advanced COPD with chronic O2 and steroid dependence, frequent hospitalization, weight loss, elevated CO3. Continue supportive care while we pursue more outpatient support. 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 VTE Prophylaxis: IPC in place Disposition: Care management and social work looking into [facility] or higher level of care at [facility] and will not have further information or decisions until saturday Patient is amendable to hospice consult.
[2016-11-10] MEDS: PAROXETINE 10 MG TABLET PO SCH (20:05)
[2016-11-10] MEDS ORDERED: ALBUTEROL NEB 2.5 MG/3 ML VIAL.NEB NEB ONE (22:06)
[2016-11-10] MEDS ORDERED: ALPRAZOLAM 0.25 MG TABLET PO ONE (23:50)
[2016-11-11] MEDS ORDERED: ALBUTEROL NEB 2.5 MG/3 ML VIAL.NEB NEB SCH
[2016-11-11] MEDS: ALPRAZOLAM 0.25 MG TABLET PO PRN ×4 (03:57→22:33)
[2016-11-11] MEDS: ALBUTEROL/IPRATROPIUM 2.5/0.5 MG 3 ML/EACH DOSE IH SCH ×4 (07:19→20:24)
[2016-11-11] MEDS: CEPHALEXIN 500 MG CAPSULE PO SCH ×3 (08:09→21:12)
[2016-11-11] MEDS: PREDNISONE 10 MG TABLET PO SCH (08:09)
[2016-11-11] MEDS: FLUTICASONE/SALMETEROL 100/50 14 PUFF/EACH DISK IH SCH ×2 (08:12→21:02)
--- NOTE | 2016-11-11 08:33 | PDOC43 ---
- Subjective Chief Complaint: Debility, dyspnea Subjective: Reports Shortness of Breath (stable), Denies Fever - Objective Vital Signs Temperature 97.3 F 11/11/16 07:03 Pulse Rate 93 11/11/16 07:03 Respiratory Rate 24 11/11/16 08:00 Blood Pressure 136/61 11/11/16 07:03 O2 Saturation by Pulse Oximetry 99 11/11/16 07:03 Oxygen Delivery Method Nasal Cannula Oxygen Flow Rate 2 Intake and Output 11/10/16 11/11/16 11/12/16 06:59 06:59 06:59 Intake Total 1680 1460 Output Total 1250 1925 175 Balance 430 -465 -175 General: Alert, Oriented x3, Cooperative, Mild Distress HEENT: Mucous membr. moist/pink Lungs: Other (diminished throughout) Cardiovascular: Regular Rate and Rhythm Abdomen: Soft, Normal Bowel Sounds, Non-Distended, No Tenderness Extremities: No Edema Laboratory 11/08/16 05:15 Current Medications: Current meds reviewed in EMR. - Problems: Assessment/Plan (1) Counseling regarding end of life decision making Status: AcuteAssessment/Plan: Discussed code status and confirmed AND/DNR. Has a POLST already. Consult hospice for enrollment at discharge, social work/care management notified. (2) Anxiety Status: ChronicAssessment/Plan: Hypoxia with panic attacks contributing to dyspnea and return to hospital as part of end stage COPD. Trial of low dose paroxetine at bedtime. (3) COPD (chronic obstructive pulmonary disease) Qualifiers: COPD type: unspecified COPD Qualifier Code: (J44.9) Chronic obstructive pulmonary disease, unspecified Status: ChronicAssessment/Plan: End stages of advanced COPD with chronic O2 and steroid dependence, frequent hospitalization, weight loss, elevated CO3. Continue supportive care while we pursue more outpatient support. 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 VTE Prophylaxis: IPC in place Disposition: Care management and social work looking into [facility] or higher level of care at [facility] and will not have further information or decisions until Saturday Patient is amendable to hospice consult.
[2016-11-11] MEDS: ALBUTEROL NEB 2.5 MG/3 ML VIAL.NEB NEB PRN (14:08)
[2016-11-11] MEDS: PAROXETINE 10 MG TABLET PO SCH (21:03)
[2016-11-11] MEDS ORDERED: ALPRAZOLAM 0.25 MG TABLET PO ONE (23:45)
[2016-11-12] MEDS: ALBUTEROL NEB 2.5 MG/3 ML VIAL.NEB NEB PRN (06:25)
[2016-11-12] MEDS: FLUTICASONE/SALMETEROL 100/50 14 PUFF/EACH DISK IH SCH (09:20)
[2016-11-12] MEDS: PREDNISONE 10 MG TABLET PO SCH (09:21)
[2016-11-12] MEDS: ALBUTEROL/IPRATROPIUM 2.5/0.5 MG 3 ML/EACH DOSE IH SCH ×3 (09:36→15:18)
--- NOTE | 2016-11-12 13:41 | PDOC5 ---
ADMIT DATE: 11/06/16 DISCHARGE DATE: 11/12/16 ADMISSION DIAGNOSES: COPD, with chronic hypercapnia Anxiety, on chronic alprazolam Difficulty with living situation, IADLs PROCEDURES PERFORMED THIS HOSPITALIZATION: None CONSULTATIONS: None HOSPITAL COURSE: This is a 86 year old female with had been discharged 3 days prior. She had been resistant to discharge at that time, and had felt she wasn't able to return to home. She returned on 11/06 for anxiety and shortness of breath. She is chronically on supplemental Oxygen, 2-3 L/min. Admission labs were not especially remarkable, WBC 8.0, Hb 11.2, plt 213. BMP had Na 138, K 5.3, bicarb 45 (at her baseline), glucose 131, troponin 0.01, BNP 62. Venous BG with pH 2.27, pCO2 89, pO2 94.1, bicarb 40.5. UA unrem. CXR was unchanged from baseline COPD appearance. Pt referred to hospitalist service, on observation. Her medications were continued, and social work consulted. Hospice consulted, but they felt patient was not a candidate for hospice at this time. B12 and folate were checked and were not low. - Exam Vital Signs Temperature 97.9 F 11/12/16 08:00 Pulse Rate 102 11/12/16 09:36 Respiratory Rate 18 11/12/16 09:36 Blood Pressure 123/62 11/12/16 08:00 O2 Saturation by Pulse Oximetry 93 11/12/16 09:36 Oxygen Delivery Method Nasal Cannula Oxygen Flow Rate 1.5 General: Alert, No Acute Distress Lungs: Other (poor air movement bilat, some wheeze) Cardiovascular: Regular Rate and Rhythm Abdomen: Soft, Normal Bowel Sounds, Non-Distended Extremities: No Edema, No Tenderness Skin: Normal Color Neurological: Normal Speech Psych/Mental Status: Other (appears to be happy about going to [facility]) - Results Laboratory 11/08/16 05:15 Imaging Results: CXR - COPD, senescent changes, no acute. - Problems:Assessment/Plan (1) COPD (chronic obstructive pulmonary disease) Qualifiers: COPD type: unspecified COPD Qualifier Code: (J44.9) Chronic obstructive pulmonary disease, unspecified Status: ChronicAssessment/Plan: End stages of advanced COPD with chronic O2 and steroid dependence, frequent hospitalization, weight loss, elevated CO3. Continue supportive care while we pursue more outpatient support. Pt reports nebulizer more helpful than MDI she has at home. (2) Counseling regarding end of life decision making Status: AcuteAssessment/Plan: Discussed code status and confirmed AND/DNR. Has a POLST already. Consulted hospice for enrollment, but they didn't anticipate she would qualify, although CM may clarify that they had checked pCO2 (3) Anxiety Status: ChronicAssessment/Plan: Hypoxia with panic attacks contributing to dyspnea and return to hospital as part of end stage COPD. Trial of low dose paroxetine at bedtime. 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 - Disposition: Disposition: Anticipate DC to [facility] - Discharge Plan Prescriptions: Alprazolam [XANAX 0.25 MG TABLET (SHF)] 0.125 - 0.25 mg PO Q4H PRN #60 PRN Reason: Anxiety Follow-Up: Naida Leung DO [Primary Care Provider] - 11/19/16 4:00 pm Condition: Stable Disposition: Alf Facility
[2016-11-12 13:56] VITALS: BP 118/65
[2016-11-12] MEDS: ALPRAZOLAM 0.25 MG TABLET PO PRN (16:34)
== END 2016-11-12 16:40 ==
LOC: ED 16:29 → ICU 18:51 → INTOOBSV 18:51 → MS 11-08 14:53
PROVIDERS: ADMIT Family Medicine; ATTEND Family Medicine
DX: J44.1 Chronic obstructive pulmonary disease with (acute) exacerbation (principal); J96.01 Acute respiratory failure with hypoxia; J96.02 Acute respiratory failure with hypercapnia; F41.9 Anxiety disorder, unspecified; E87.5 Hyperkalemia; D64.9 Anemia, unspecified; Z51.5 Encounter for palliative care

== ENCOUNTER 2016-11-17 15:26 | Inpatient (IN) | payer MEDICARE ==
[2016-11-17] MEDS ORDERED: ALBUTEROL/IPRATROPIUM 2.5/0.5 MG 3 ML/EACH DOSE ONE (15:51)
[2016-11-17 16:08] LABS: ARTERIAL BLOOD GAS BASE EXCESS 5.9 mmol/L (-2.0-2.0); ARTERIAL BLOOD GAS HCO3 33.7 mmol/L (22.0-28.0); ARTERIAL BLOOD GAS PCO2 65.2 mmHg (35.0-45.0); ARTERIAL BLOOD GAS PO2 110.4 mmHg (80.0-90.0); ARTERIAL BLOOD GAS pH 7.331 (7.350-7.450)
[2016-11-17 16:26] LABS: ABSOLUTE NEUTROPHIL COUNT 8.2 K/mm3 (1.8-7.7); BASO % 0.3 % (0.2-1.0); EOS # 0.1 (0.0-0.5); EOS % 1.1 % (0.9-2.9); HEMATOCRIT 37.7 % (37.0-47.0); HEMOGLOBIN 11.4 gm/l (12.0-16.0); IMM NEUT% 0.3 % (0-1); LYMPH # 0.3 (1.0-4.8); LYMPH % 3.6 % (15-45); MEAN CORPUSCULAR HEMOGLOBIN 29.9 pg (27.0-31.0); MEAN CORPUSCULAR HGB CONC 30.2 g/dl (33.0-37.0); MEAN PLATELET VOLUME 9.7 fl (7.4-10.4); MONO # 0.4 (0.0-0.8); MONO % 4.6 % (4-12); NEUT % 90.1 % (43-75); PLATELET COUNT 176 K/mm3 (130-400); RED CELL DISTRIBUTION WIDTH 12.8 % (11.5-14.5)
[2016-11-17 16:36] LABS: ALB/GLOB RATIO 1.1 (>1.0); ALBUMIN 3.4 gm/dL (3.5-5.7); CALCIUM 8.6 mg/dL (8.6-10.3)
[2016-11-17 16:43] LABS: TROPONIN I 0.09 ng/ml (0.0-0.06)
[2016-11-17 16:45] LABS: CKMB ISOENZYME 1.6 ng/ml (0.6-6.3)
[2016-11-17] MEDS ORDERED: LEVOFLOXACIN 500 MG/D5W 100 ML 100 ML IV ONE (17:02)
[2016-11-17] MEDS ORDERED: LACTATED RINGERS 1,000 ML ONE (17:02)
[2016-11-17 17:13] LABS: BAND 53 % (0-10); BASOPHIL 2 % (0-1); EOSINOPHIL 0 % (1-3); LYMPHOCYTE 4 % (15-45); MONOCYTE 1 % (4-12); NEUTROPHILS 40 % (43-75); PLATELET ESTIMATE NORMAL (NORMAL); TOTAL CELLS COUNTED 100
[2016-11-17 17:18] LABS: ARTERIAL BLOOD GAS PCO2 63.7 mmHg (35.0-45.0); ARTERIAL BLOOD GAS pH 7.361 (7.350-7.450)
[2016-11-17 17:19] LABS: ARTERIAL BLOOD GAS HCO3 35.3 mmol/L (22.0-28.0)
--- NOTE | 2016-11-17 17:21 | RAD ---
CHEST-AP BEDSIDE HISTORY: Dyspnea. COMPARISONS: 11/06/2016. FINDINGS: A single view of the chest was performed demonstrating extensive pulmonary hyperinflation. The heart size is appropriate. There is increased right basilar density identified more conspicuous than its appearance on previous examination. The somewhat nodular in appearance, as this was not evident on the previous examination, this may reflect infectious consolidation. No effusion is seen. The hilar and mediastinal structures are intact. IMPRESSION: 1. A new nodular density within the lateral right pulmonary base raising concern for infectious consolidation, as the finding was not evident on the recent examination of 11/06/2016. Follow-up to resolution however is recommended. 2. Extensive pulmonary hyperinflation.
[2016-11-17] MEDS ORDERED: ACETAMINOPHEN 325 MG TABLET ONE (17:25)
[2016-11-17 18:22] LABS: URINE BILIRUBIN NEGATIVE (NEGATIVE); URINE BLOOD 2+ (NEGATIVE); URINE GLUCOSE (UA) NEGATIVE (NEGATIVE); URINE LEUKOCYTE ESTERASE TRACE (NEGATIVE); URINE NITRITE NEGATIVE (NEGATIVE); URINE PROTEIN 1+ (NEGATIVE); URINE UROBILINOGEN NORMAL (0-1 mg/dl)
[2016-11-17 18:33] LABS: URINE APPEARANCE CLEAR; URINE COLOR AMBER
[2016-11-17] MEDS ORDERED: PUMP TUBING ONE (18:35)
[2016-11-17] MEDS ORDERED: SODIUM CHLORIDE 0.9% 1,000 ML ONE (18:35)
[2016-11-17 18:41] LABS: URINE BACTERIA 1+; URINE WBC 0-2 /hpf
[2016-11-17] MEDS ORDERED: SODIUM CHLORIDE 0.9% 100 ML IV PRN (18:45)
[2016-11-17] MEDS ORDERED: BLISTEX LIPSTICK 1 EACH TP PRN (18:45)
[2016-11-17] MEDS ORDERED: BISACODYL 10 MG SUP PR PRN (18:45)
[2016-11-17] MEDS ORDERED: MAGNESIUM HYDROXIDE 30 ML UDCUP PO PRN (18:45)
[2016-11-17] MEDS ORDERED: BISACODYL 5 MG TABLET.EC PO PRN (18:45)
[2016-11-17] MEDS ORDERED: ACETAMINOPHEN 325 MG TABLET PO PRN ×2 (18:45→23:30)
[2016-11-17] MEDS ORDERED: MENTHOL/CETYLPYRD 1 EACH LOZENGE PO PRN (18:45)
[2016-11-17] MEDS: SODIUM CHLORIDE 0.9% 1,000 ML IV SCH (18:45)
[2016-11-17] MEDS ORDERED: LEVOFLOXACIN 750 MG/D5W 150 ML 750 MG in Premix (D5W) 150 ml Bag 1 EACH IV SCH (19:00)
[2016-11-17 19:17] VITALS: BMI 22.6
[2016-11-17] MEDS: ALBUTEROL/IPRATROPIUM 2.5/0.5 MG 3 ML/EACH DOSE IH SCH ×2 (19:47→20:05)
--- NOTE | 2016-11-17 20:21 | HP ---
SATISH TAYLOR : 1930 DATE OF ADMISSION: November 17, 2016 CHIEF COMPLAINT: Shortness of breath. HISTORY OF PRESENT ILLNESS: Patient is a very poor historian. When asked why she was at the hospital, she said she was short of breath. When questioned when her shortness of breath started, she said when she got to the hospital. Initially she told me she brought herself to the hospital, but when questioned about if she still drove, she said she does not know how she got here. She is presenting from [facility] presumably for increasing shortness of breath, possibly cough. She has had several multiple hospitalizations within the past month. Most recently she was discharged on November 12, 2016 for a chronic obstructive pulmonary disease exacerbation. That was a six-day hospital stay, and then again she was discharged on November 03, 2016 for similar symptoms. She said she has a cough, but she cannot tell me if it is worsened, and she denies any fever, ear, nose or throat pain. She is alert to herself and to location but other historical details are not available at this time. REVIEW OF SYSTEMS: GENERAL: No fevers, chills. ENT: No congestion, throat pain. CARDIOVASCULAR: No chest pain or pressure. RESPIRATORY: Shortness of breath, cough. ABDOMEN: No nausea, vomiting, abdominal pain. GENITOURINARY: No difficulties with urination. MUSCULOSKELETAL: She has muscle aches. NEUROLOGIC: No numbness, tingling, or headaches. PAST MEDICAL HISTORY: Significant for: 1. 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 2. Anxiety. 3. In review of EMR there is a history of dementia, anxiety, coronary artery disease, hypertension, hyperlipidemia. PAST SURGICAL HISTORY: 1. Appendectomy. 2. section. 3. Cholecystectomy. 4. Coronary angiogram. ALLERGIES: 1. SULFA. 2. PENICILLIN. 3. COUMADIN. 4. HEPARIN. 5. CODEINE. MEDICATIONS: Include: 1. Advair. 2. Duoneb. 3. Xanax. 4. Tylenol. 5. Keflex. 6. Multivitamin. 7. Probiotic. 8. Prednisone. 9. Paxil. FAMILY HISTORY: Coronary artery disease. SOCIAL HISTORY: She lives at [facility]. About a 50 pack-year history of tobacco use, but she says she quit 40 years ago. PHYSICAL EXAM: GENERAL: Patient is alert and oriented to self and to place. She is off by a couple of days on dates. VITAL SIGNS: She is on Venturi mask saturating 98% with 50% FIO2. She has a recent temperature of 103 in the emergency department. Currently it is 99.8. She has a heart rate of 101 and a blood pressure of 109/47. HEENT: Normocephalic, atraumatic. Her pupils are equal, round and reactive. Her extraocular muscles are intact. Her mucous membranes are dry. She is cachectic appearing. NECK: Supple. Trachea midline. RESPIRATORY: CARDIOVASCULAR: Regular, tachycardic. She has positive pulses radially and posterior tibial. There is no peripheral edema. RESPIRATORY: Clear to auscultation with faint crackles in the left lower base. ABDOMEN: Soft, nontender, no rebound, no guarding. MUSCULOSKELETAL: She is moving upper extremities without difficulty. Lower extremities are nontender. NEUROLOGIC: She is alert and oriented. LABORATORIES: Sodium 131, potassium 4.8, chloride 88, carbon dioxide is 38, BUN 15, creatinine 0.7, glucose of 140, CK-MB of 1.6, troponin is 0.09, BNP of 119. White blood cell count of 9.1, hemoglobin of 11.4, hematocrit 37.7, platelet count of 176. PCO2 most recent 63.7, PO2 61.0. ABG pH is 7.361, ABG bicarbonate 35.3, VBG lactate of 0.8. Urinalysis was obtained. It was clear and yellow. Negative ketones, glucose, 2+ blood, negative nitrites, trace leukocyte esterase, 10 to 15 urine red blood cells, 0 to 2 white blood cells, 1+ urine bacteria. ELECTROCARDIOGRAM: Electrocardiogram was obtained and it shows a sinus tachycardia of 126 beats per minute, a left axis deviation, WI interval 141 ms, QRS duration of 84 ms, QTc of 346 ms. There are no acute ST segment elevations or depressions. 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 DIAGNOSTIC IMAGING: Chest x-ray was obtained and interpreted as a new nodular density within the lateral right pulmonary base, not evident on recent exam from November 06, 2016. Extensive pulmonary hyperinflation. ASSESSMENT: This is an 86-year-old female with end-stage chronic obstructive pulmonary disease, chronic respiratory hypoxemic and hypercapnic failure with worsening shortness of breath and new found infiltrate on chest x-ray. PLAN: 1. Pneumonia with sepsis. Assume this is hospital acquired as two recent hospitalizations and she is from an [facility] facility. She is on Levaquin currently. Provide IV fluids and monitor closely. 2. Sepsis with tachycardia, fever, and pneumonia on exam. She received a liter of fluids and Levaquin in the emergency department. We will monitor closely. 3. Hyponatremia presumably due to dehydration as her mucous membranes are dry. We will continue to provide IV fluids and monitor her inputs and outputs. 4. Chronic respiratory failure. She is currently on Venturi mask and we will wean her off to her home O2 oxygen requirements. 5. End-stage chronic obstructive pulmonary disease. Continue nebulizer treatments and monitor closely. 6. Dementia. Complicates medical history taking and care. 7. Anxiety. We will continue her home medications. 8. She is a DO NOT RESUSCITATE. Cc: Naida Leung M.D.
[2016-11-17 20:41] LABS: VENOUS BLOOD GAS BASE EXCESS 10.2 mmol/L (-2.0-2.0); VENOUS BLOOD GAS HCO3 38.5 mmol/L (22.0-27.0)
[2016-11-17] MEDS: DOCUSATE SODIUM 100 MG CAPSULE PO SCH (21:43)
[2016-11-17] MEDS: FLUTICASONE/SALMETEROL 100/50 14 PUFF/EACH DISK IH SCH (21:43)
[2016-11-17] MEDS: PAROXETINE 10 MG TABLET PO SCH (21:43)
--- NOTE | 2016-11-17 23:00 | PDOC36 ---
Provider Note Subject: Patient with elevated troponin in setting of pneumonia and acute on chronic respiratory failure. She is a DNR/I with limited interventions and a poor candidate for cardiac interventions. She denies chest pain. Will monitor closely and treat medically for NSTEMI
[2016-11-18] MEDS: ALBUTEROL NEB 2.5 MG/3 ML VIAL.NEB NEB PRN (03:21)
[2016-11-18] MEDS: ALPRAZOLAM 0.25 MG TABLET PO PRN ×2 (03:31→08:04)
[2016-11-18 06:07] LABS: ABSOLUTE NEUTROPHIL COUNT 9.3 K/mm3 (1.8-7.7); BASO % 0.2 % (0.2-1.0); EOS # 0.1 (0.0-0.5); EOS % 1.2 % (0.9-2.9); HEMATOCRIT 32.2 % (37.0-47.0); IMM NEUT% 0.2 % (0-1); LYMPH # 0.5 (1.0-4.8); LYMPH % 4.3 % (15-45); MEAN CELL VOLUME 97.6 fl (81.0-99.0); MEAN CORPUSCULAR HEMOGLOBIN 30.3 pg (27.0-31.0); MEAN CORPUSCULAR HGB CONC 31.1 g/dl (33.0-37.0); MEAN PLATELET VOLUME 9.8 fl (7.4-10.4); MONO # 0.7 (0.0-0.8); MONO % 6.2 % (4-12); NEUT % 87.9 % (43-75); PLATELET COUNT 152 K/mm3 (130-400); RED CELL DISTRIBUTION WIDTH 12.8 % (11.5-14.5)
[2016-11-18] MEDS: SODIUM CHLORIDE 0.9% 1,000 ML IV SCH ×2 (06:16→09:39)
[2016-11-18 06:32] LABS: CKMB ISOENZYME 4.8 ng/ml (0.6-6.3)
[2016-11-18 06:36] LABS: TROPONIN I 0.26 ng/ml (0.0-0.06)
[2016-11-18 07:19] LABS: BAND 354 % (0-10); BASOPHIL 0 % (0-1); EOSINOPHIL 0 % (1-3); LYMPHOCYTE 3 % (15-45); MONOCYTE 3 % (4-12); NEUTROPHILS 60 % (43-75); PLATELET ESTIMATE NORMAL (NORMAL); TOTAL CELLS COUNTED 100
[2016-11-18] MEDS: PREDNISONE 20 MG TABLET PO SCH (08:04)
[2016-11-18] MEDS: DOCUSATE SODIUM 100 MG CAPSULE PO SCH ×2 (08:04→21:21)
[2016-11-18] MEDS: ALBUTEROL/IPRATROPIUM 2.5/0.5 MG 3 ML/EACH DOSE IH SCH ×4 (08:13→20:09)
[2016-11-18] MEDS: FLUTICASONE/SALMETEROL 100/50 14 PUFF/EACH DISK IH SCH ×2 (09:39→21:20)
[2016-11-18] MEDS ORDERED: D5 1/2NS 500 ML IV SCH (13:00)
--- NOTE | 2016-11-18 13:14 | PDOC43 ---
- Subjective Chief Complaint: Shortness of breath Subjective: Reports Shortness of Breath (chronic), Denies Chest Pain, Denies Fever - Objective Vital Signs Temperature 98 F 11/18/16 11:00 Pulse Rate 95 11/18/16 12:00 Respiratory Rate 28 11/18/16 12:00 Blood Pressure 101/46 11/18/16 12:00 O2 Saturation by Pulse Oximetry 95 11/18/16 12:00 Oxygen Delivery Method Venturi Mask Oxygen Flow Rate 15 Intake and Output 11/17/16 11/18/16 11/19/16 06:59 06:59 06:59 Intake Total 1945 525 Output Total 601 Balance 1344 525 General: Alert, Moderate Distress HEENT: Mucous membr. moist/pink Lungs: Diminished at Bases Cardiovascular: Regular Rate and Rhythm Abdomen: Soft, Normal Bowel Sounds, Non-Distended, No Tenderness Extremities: No Edema Skin: Warm, Dry, Intact Laboratory 11/18/16 05:32 11/18/16 05:32 11/18/16 11/17/16 11/17/16 05:32 21:50 20:30 RBC 3.30 L MCHC 31.1 L VBG pH 7.321 L VBG O2 Saturation 88.9 H VBG Base Excess 10.2 H Mixed VBG pCO2 76.3 H Mixed VBG pO2 58.7 H Mixed VBG HCO3 38.5 H Anion Gap 7 L Estimated GFR 95 H Calcium 8.0 L Troponin I 0.26 H 0.47 H Current Medications: Current meds reviewed in EMR. - Problems: Assessment/Plan (1) Pneumonia Qualifiers: Pneumonia type: due to unspecified organism Laterality: right Lung location: lower lobe of lung Qualifier Code: (J18.1) Lobar pneumonia, unspecified organism Status: AcuteAssessment/Plan: with acute on chronic resp. failure, treated with Levaquin - [employer] COORDINATOR (2) COPD (chronic obstructive pulmonary disease) Qualifiers: COPD type: unspecified COPD Qualifier Code: (J44.9) Chronic obstructive pulmonary disease, unspecified Status: ChronicAssessment/Plan: end stage, chronic and severe on home oxygen with chronic hypoxic resp failure, H/O poor tolerance to prednisone (3) NSTEMI, initial episode of care Status: AcuteAssessment/Plan: beta sami held due to low BP, will treat with aspirin (4) Encephalopathy acute Status: AcuteAssessment/Plan: likely due to hypoxia and infection, does not have H/O dementia - will follow VTE Prophylaxis: mech measures Disposition: return to ICF in 2-3 days
[2016-11-18] MEDS ORDERED: D5 1/2NS 1,000 ML IV SCH (13:30)
[2016-11-18] MEDS: D5 1/2NS 1,000 ML IV SCH ×2 (13:49→23:56)
[2016-11-18] MEDS: ASPIRIN (ENTERIC COATED) 325 MG TABLET.EC PO SCH (13:49)
[2016-11-18] MEDS: PAROXETINE 10 MG TABLET PO SCH (21:21)
[2016-11-19] MEDS: ALBUTEROL/IPRATROPIUM 2.5/0.5 MG 3 ML/EACH DOSE IH SCH ×5 (08:30→20:00)
[2016-11-19] MEDS: PREDNISONE 20 MG TABLET PO SCH (08:31)
[2016-11-19] MEDS: DOCUSATE SODIUM 100 MG CAPSULE PO SCH ×2 (08:32→21:15)
[2016-11-19] MEDS: ALPRAZOLAM 0.25 MG TABLET PO PRN ×2 (08:32→18:20)
[2016-11-19] MEDS: ASPIRIN (ENTERIC COATED) 325 MG TABLET.EC PO SCH (08:32)
[2016-11-19] MEDS: FLUTICASONE/SALMETEROL 100/50 14 PUFF/EACH DISK IH SCH ×2 (08:41→21:15)
[2016-11-19] MEDS ORDERED: LEVOFLOXACIN 750 MG/D5W 150 ML 750 MG in Premix (D5W) 150 ml Bag 1 EACH IV SCH (09:00)
[2016-11-19] MEDS ORDERED: FLUTICASONE/SALMETEROL 100/50 14 PUFF/EACH DISK IH SCH (10:15)
[2016-11-19] MEDS: D5 1/2NS 1,000 ML IV SCH ×2 (11:31→21:14)
--- NOTE | 2016-11-19 12:04 | PDOC43 ---
- Subjective Chief Complaint: Shortness of breath Patient reports feeling better. No pain. Was having dyspnea, fatigue, but better now. Not particularly interested in hospice at this moment. - Objective Vital Signs Temperature 97.6 F 11/19/16 11:15 Pulse Rate 108 11/19/16 11:15 Respiratory Rate 26 11/19/16 11:15 Blood Pressure 98/50 11/19/16 11:15 O2 Saturation by Pulse Oximetry 98 11/19/16 11:15 Oxygen Delivery Method Venturi Mask Oxygen Flow Rate 6 Vital Signs Last 12 Hours Temp Pulse Resp BP Pulse Ox 11/19/16 11:15 97.6 F 108 26 98/50 98 11/19/16 08:39 98 113/52 11/19/16 08:30 98 22 81 11/19/16 08:00 20 11/19/16 07:07 97.0 F 88 20 112/57 94 11/19/16 04:00 96.4 F 73 16 91/38 98 11/19/16 02:00 16 11/18/16 23:57 97 F 80 16 98/77 95 Intake and Output 11/17/16 11/18/16 11/19/16 23:59 23:59 23:59 Intake Total 1000 2732 1434 Output Total 1251 850 Balance 1000 1481 584 General: Alert, Oriented x3, Cooperative, Mild Distress Lungs: Clear to Auscultation Bilaterally, No Normal Air Movement (low air flow, with mask on) Cardiovascular: Regular Rate and Rhythm Abdomen: Soft, No Tenderness, No Rebounding Extremities: Other (IV in leg lower leg.), No Cyanosis Skin: Normal Color Neurological: Normal Speech (improved, compared with admission.) Psych/Mental Status: Other (pleasant, answers questions) Laboratory 11/18/16 05:32 11/18/16 05:32 Current Medications: Current meds reviewed in EMR. Active Medications Acetaminophen (Tylenol) 650 mg PO Q6H PRN PRN Reason: Pain or Temperature > 100.5 F Albuterol Sulfate (Ventolin Inhalation Solution (Dose)) 2.5 mg NEB Q4HR PRN PRN Reason: Shortness of Breath Last Admin: 11/18/16 03:21 Dose: 2.5 mg Albuterol/Ipratropium (Duoneb) 3 ml IH QID ALEXANDRA Last Admin: 11/19/16 08:30 Dose: 3 ml Alprazolam (Xanax) 0.25 mg PO Q4H PRN PRN Reason: Anxiety Last Admin: 11/19/16 08:32 Dose: 0.25 mg Aspirin (Ecotrin) 325 mg PO DAILY [facility] Last Admin: 11/19/16 08:32 Dose: 325 mg Benzocaine/Menthol (Cepacol) 1 each PO PRN PRN PRN Reason: Sore Throat Bisacodyl (Dulcolax) 10 mg WV DAILY PRN PRN Reason: Constipation Bisacodyl (Dulcolax) 5 mg PO DAILY PRN PRN Reason: Constipation Docusate Sodium (Colace) 100 mg PO BID [facility] Last Admin: 11/19/16 08:32 Dose: Not Given Sodium Chloride (Sodium Chloride 0.9%) 100 mls @ 25 mls/hr IV PRN PRN PRN Reason: Flush Levofloxacin/Dextrose 750 mg/ (Premix (D5W) 150 ml Bag) 150 mls @ 100 mls/hr IV Q48H [facility] Last Admin: 11/19/16 08:37 Dose: 100 mls/hr Dextrose/Sodium Chloride (D5 1/2ns) 1,000 mls @ 100 mls/hr IV .Q10H [facility] Last Admin: 11/19/16 11:31 Dose: 100 mls/hr Paroxetine HCl (Paxil) 5 mg PO BEDTIME [facility] Last Admin: 11/18/16 21:21 Dose: 5 mg Petrolatum/Paraffin/Mineral Oil (Blistex) 1 each TP PRN PRN PRN Reason: Dry and/or chapped lips Prednisone (Prednisone) 10 mg PO QAM [facility] Last Admin: 11/19/16 08:31 Dose: 10 mg Fluticasone/Salmeterol (Advair 100/50 Diskus) 1 puff IH BID [facility] Last Admin: 11/19/16 08:41 Dose: 1 puff Sodium Chloride (Normal Saline 10ml Flush) 10 - 50 ml IV PRN PRN PRN Reason: IV Flush Sodium Chloride (Normal Saline 10ml Flush) 10 ml IV Q8HR [facility] Last Admin: 11/19/16 09:38 Dose: Not Given - Problems: Assessment/Plan (1) COPD (chronic obstructive pulmonary disease) Qualifiers: COPD type: unspecified COPD Qualifier Code: (J44.9) Chronic obstructive pulmonary disease, unspecified Status: ChronicAssessment/Plan: end stage, chronic and severe on home oxygen with chronic hypoxic resp failure, H/O poor tolerance to prednisone Moderate improvement so far vs admission. (2) Encephalopathy acute Status: AcuteAssessment/Plan: likely due to hypoxia and infection, now resolved. VTE Prophylaxis: [facility] measures Disposition: return to ICF in 2-3 days. Pt not particularly wanting to pursue hospice currently. She had declined hospice referral on previous hospitalization.
[2016-11-19] MEDS: PAROXETINE 10 MG TABLET PO SCH (21:15)
[2016-11-20] MEDS: ALBUTEROL NEB 2.5 MG/3 ML VIAL.NEB NEB PRN (03:40)
[2016-11-20] MEDS: ALPRAZOLAM 0.25 MG TABLET PO PRN (05:55)
[2016-11-20] MEDS: D5 1/2NS 1,000 ML IV SCH (07:10)
[2016-11-20 07:28] VITALS: BP 115/56
--- NOTE | 2016-11-20 07:39 | PDOC43 ---
- Subjective Chief Complaint: Shortness of breath RT reports pt with increasing WOB, lower sats despite 50% on Venti Mask. Patient c/o buttock pain from sitting, and is fairly dyspneic. Notes fatigue. - Objective Vital Signs Temperature 97.2 F 11/20/16 03:25 Pulse Rate 91 11/20/16 03:40 Respiratory Rate 24 11/20/16 03:40 Blood Pressure 89/43 11/20/16 03:27 O2 Saturation by Pulse Oximetry 84 11/20/16 06:50 Oxygen Delivery Method Venturi Mask Oxygen Flow Rate 6 Vital Signs Last 12 Hours Temp Pulse Resp BP Pulse Ox 11/20/16 06:50 84 11/20/16 03:40 91 24 91 11/20/16 03:27 89/43 11/20/16 03:25 97.2 F 92 25 107/51 95 11/20/16 02:03 25 11/19/16 20:00 104 26 91 11/19/16 19:45 97.1 F 103 26 103/51 90 Intake and Output 11/18/16 11/19/16 11/20/16 23:59 23:59 23:59 Intake Total 2732 1534 2889 Output Total 1251 1650 1400 Balance 1481 -116 1489 General: Other (awake, fatiguing) HEENT: Atraumatic Lungs: No Normal Air Movement (decreased air movement throughout.) Abdomen: Soft, Non-Distended Extremities: Other (SCDs on), No Edema Skin: No Normal Color (pale) Neurological: No Normal Speech (limited to short phrases due to dyspnea) Laboratory 11/18/16 05:32 11/18/16 05:32 Current Medications: Current meds reviewed in EMR. Active Medications Acetaminophen (Tylenol) 650 mg PO Q6H PRN PRN Reason: Pain or Temperature > 100.5 F Last Admin: 11/19/16 18:33 Dose: 650 mg Albuterol Sulfate (Ventolin Inhalation Solution (Dose)) 2.5 mg NEB Q4HR PRN PRN Reason: Shortness of Breath Last Admin: 11/20/16 03:40 Dose: 2.5 mg Albuterol/Ipratropium (Duoneb) 3 ml IH QID ALEXANDRA Last Admin: 11/19/16 20:00 Dose: 3 ml Alprazolam (Xanax) 0.25 mg PO Q4H PRN PRN Reason: Anxiety Last Admin: 11/20/16 05:55 Dose: 0.25 mg Aspirin (Ecotrin) 325 mg PO DAILY [facility] Last Admin: 11/19/16 08:32 Dose: 325 mg Benzocaine/Menthol (Cepacol) 1 each PO PRN PRN PRN Reason: Sore Throat Bisacodyl (Dulcolax) 10 mg ND DAILY PRN PRN Reason: Constipation Bisacodyl (Dulcolax) 5 mg PO DAILY PRN PRN Reason: Constipation Docusate Sodium (Colace) 100 mg PO BID [facility] Last Admin: 11/19/16 21:15 Dose: 100 mg Sodium Chloride (Sodium Chloride 0.9%) 100 mls @ 25 mls/hr IV PRN PRN PRN Reason: Flush Levofloxacin/Dextrose 750 mg/ (Premix (D5W) 150 ml Bag) 150 mls @ 100 mls/hr IV Q48H [facility] Last Admin: 11/19/16 08:37 Dose: 100 mls/hr Dextrose/Sodium Chloride (D5 1/2ns) 1,000 mls @ 100 mls/hr IV .Q10H [facility] Last Admin: 11/20/16 07:10 Dose: 100 mls/hr Paroxetine HCl (Paxil) 5 mg PO BEDTIME [facility] Last Admin: 11/19/16 21:15 Dose: 5 mg Petrolatum/Paraffin/Mineral Oil (Blistex) 1 each TP PRN PRN PRN Reason: Dry and/or chapped lips Prednisone (Prednisone) 10 mg PO QAM [facility] Last Admin: 11/19/16 08:31 Dose: 10 mg Fluticasone/Salmeterol (Advair 100/50 Diskus) 1 puff IH BID [facility] Last Admin: 11/19/16 21:15 Dose: 1 puff Sodium Chloride (Normal Saline 10ml Flush) 10 - 50 ml IV PRN PRN PRN Reason: IV Flush Sodium Chloride (Normal Saline 10ml Flush) 10 ml IV Q8HR [facility] Last Admin: 11/20/16 00:08 Dose: Not Given - Problems: Assessment/Plan (1) COPD (chronic obstructive pulmonary disease) Qualifiers: COPD type: unspecified COPD Qualifier Code: (J44.9) Chronic obstructive pulmonary disease, unspecified Status: ChronicAssessment/Plan: end stage, chronic and severe on home oxygen with chronic hypoxic resp failure, H/O poor tolerance to prednisone Pt with increasing hypoxia despite Venti mask. CXR suggests some pleural effusion, decreased ventilation; with increasing WOB, will check add'l labs to eval for CHF. Recheck vitals ( lower BP this am) Pt previously did not pursue hospice, but suspect pt would still be a candidate. Spoke with sister Sammi [phone] and son Neri (in [place]), [phone], and they indicate patient would prefer to focus on comfort rather than ICU /Bipap/CPAP. Pt agreeable to trial of morphine. Will also give dose of Lasix for possible degree of fluid overload, hold IVF, try simplifying. (2) Encephalopathy acute Status: AcuteAssessment/Plan: likely due to hypoxia and infection, now more with fatigue. VTE Prophylaxis: mech measures Disposition: Consider return to ICF/hospice. Pt had not wanted to pursue hospice, but declining status may force situation .
[2016-11-20] MEDS: ALBUTEROL/IPRATROPIUM 2.5/0.5 MG 3 ML/EACH DOSE IH SCH ×3 (07:46→13:52)
--- NOTE | 2016-11-20 07:53 | RAD ---
EXAMINATION : CHEST - 1 VIEW HISTORY: Diminished O2 saturation. COMPARISONS: 11/17/2016 FINDINGS: Cardiomegaly with moderate aortic ectasia is similar to the prior study. Prominent hilar structures right greater left are similar as well. Prominent bronchovascular markings are noted. These appear similar to the prior study. Relative increased translucency in the upper lung zones are similar. Hyperinflation is again noted. There is increased effacement of the calcific sulci bilaterally. Osteopenia is again noted. IMPRESSION: 1. Developing/increasing bilateral pleural effusions. 2. Hyperinflation femoral COPD. Prominent bronchovascular markings are similar. 3. Very prominent hilar structures are unchanged.
[2016-11-20] MEDS ORDERED: MORPHINE SULF Oral Liquid 20 MG/1 ML DOSE SL PRN (08:05)
[2016-11-20] MEDS ORDERED: FUROSEMIDE 20 MG/2 ML VIAL IV ONE (08:06)
[2016-11-20 08:14] LABS: CKMB ISOENZYME 14.1 ng/ml (0.6-6.3)
[2016-11-20 08:17] LABS: TROPONIN I 0.44 ng/ml (0.0-0.06)
[2016-11-20] MEDS: DOCUSATE SODIUM 100 MG CAPSULE PO SCH (10:26)
[2016-11-20] MEDS: ASPIRIN (ENTERIC COATED) 325 MG TABLET.EC PO SCH (10:26)
[2016-11-20] MEDS: PREDNISONE 20 MG TABLET PO SCH (10:27)
--- NOTE | 2016-11-20 18:17 | DEATH SUM ---
SATISH TAYLOR DATE OF : November 20, 2016 TIME OF : 1315 hours. DATE OF ADMISSION: November 17, 2016 CAUSE OF : Acute on chronic acute hypoxic respiratory failure associated with a non-ST elevation myocardial infarction, community acquired bacterial pneumonia and end-stage chronic obstructive pulmonary disease. Other factors contributing to the included: 1. History of tobacco use. 2. Other diagnoses present at the time of include acute encephalopathy felt to be due to hypoxia and infection. 3. Patient also had a history of senile dementia, chronic anxiety, hypertension and hyperlipidemia. DISPOSITION: To [facility] in [place]. SUMMARY OF ADMISSION AND HOSPITAL COURSE: The patient is an 86-year-old female with a history of repeated admissions to [facility] in the last three weeks for respiratory failure who presented for her third admission on November 17, 2016 with complaints of shortness of breath. Workup in the emergency department showed the patient to be severely hypoxic requiring a Venturi mask at 50% FIO2 and febrile with a temperature of 103. X-rays showed evidence of an infiltrate in the right lower lobe. White blood cell count was 9.1, lactate was 0.8. Chemistry profile was unremarkable except for a carbon dioxide level of 38. Initial arterial blood gas showed a pH of 7.33, a PCO2 of 65, and a PO2 of 110. She was admitted to the hospitalist service. She had an elevation in her cardiac enzymes with a troponin of 0.09 on admission. This peaked at 0.47. Initially her CPK and CK-MB levels were normal, but by the morning of November 20, 2016, her CK-MB level also increased and was 14.1. Patient initially was treated with BiPAP and IV Levaquin along with oral prednisone. Patient's condition gradually worsened despite treatment. On November 19, 2016, it was decided to change to comfort care measures, and on the afternoon of November 20, 2016, the patient with her family in the room in no apparent distress. Per family wishes, the body will be handled by [facility] in [place]. cc: Naida Leung M.D.
== END 2016-11-20 15:20 | disposition still patient (30) | DRG 871 ==
LOC: ED 15:26 → ICU 17:41 → MS 11-18 12:58
PROVIDERS: ADMIT Family Medicine; ATTEND Family Medicine
DX: A41.9 Sepsis, unspecified organism (principal); J18.1 Lobar pneumonia, unspecified organism; J96.21 Acute and chronic respiratory failure with hypoxia; I21.4 Non-ST elevation (NSTEMI) myocardial infarction; J44.0 Chronic obstructive pulmonary disease with (acute) lower respiratory infection; F03.90 Unspecified dementia, unspecified severity, without behavioral disturbance, psychotic disturbance, mood disturbance, and anxiety; F41.9 Anxiety disorder, unspecified; I10 Essential (primary) hypertension; E78.5 Hyperlipidemia, unspecified; Z99.81 Dependence on supplemental oxygen; Z51.5 Encounter for palliative care